=== PATIENT | male | born 1995 | race Caucasian/White ===

== ENCOUNTER 2021-07-31 11:05 | Emergency (ER) | payer MEDICAID ==
[~2021-07-31] VITALS: Ht 188 cm; Wt 73.0 kg
[2021-07-31] MEDS ORDERED: IBUPROFEN 600MG TABLET PO ONE (11:30)
[2021-07-31] MEDS ORDERED: BACITRACIN ZINC OINT UDPKT TOP ONE (11:30)
[2021-07-31] MEDS ORDERED: LIDOCAINE HCL/EPINEPHRINE 1%-EPI 1:100,000 20 ML VIAL INFIL ONE (11:30)
[2021-07-31] MEDS ORDERED: IBUP-2029 PO (13:45)
[2021-07-31 14:10] VITALS: BP 126/86
== END 2021-07-31 14:11 | disposition home or self-care (01) ==
LOC: ER 13:49
DX: S51.812A Laceration without foreign body of left forearm, initial encounter (principal); W27.8XXA Contact with other nonpowered hand tool, initial encounter; Y93.89 Activity, other specified; Y92.89 Other specified places as the place of occurrence of the external cause; Y99.0 Civilian activity done for income or pay
CPT/HCPCS: 12002; 99282; A4217; J3490; Z7610